=== PATIENT | male | born 1975 | race Caucasian/White ===

== ENCOUNTER 2017-12-27 | Emergency (ER) | payer BC ==
[2017-12-27 00:59] VITALS: O2SAT 94
--- NOTE | 2017-12-27 01:05 | ERPHSYRPT ---
- History of Present Illness Time Seen by Provider: 12/27/17 00:35 Source: patient Exam Limitations: no limitations Patient Subjective Stated Complaint: pt is alert and oriented. pt is ambulatory with a steady gait. pt comes in with c/o swelling in his right knee, lower leg, and foot. pt states he began having right knee pain a few days ago and tonight his entire lower leg swollen. pt pedal pulses present, equal, and strong. pt denies any shooting leg pains. no redness noted. Triage Nursing Assessment: see above Physician History: 42 y/o obese white male with h/o gout in past presents with first right 1st toe redness, tenderness, and swelling 2 to 3 days ago then same s/sx in right knee then back into right 1st toe. pt now has right 1st toe redness, tenderness and swelling as well as below knee redness, warmth and swelling. no injury. no bleeding or clotting d/o Method of Injury: other (no injury) Occurred: days ago (3) Severity of Pain-Max: mild Severity of Pain-Current: mild Lower Extremities Pain: leg: right, 1st toe: right Modifying Factors: Improves With: nothing Associated Symptoms: No unable to bear weight, No dizzy, No fainted, No seizure , No snapping sensation, No popping sensation Allergies/Adverse Reactions: No Known Drug Allergies Allergy (Verified 09/07/15 21:07) Home Medications: No Home Meds [No Home Meds] 1 [facility] UD 09/07/15 [History] Hx Tetanus, Diphtheria Vaccination/Date Given: No Hx Influenza Vaccination/Date Given: No Hx Pneumococcal Vaccination/Date Given: No Immunizations Up to Date: Yes - Review of Systems Constitutional: No Symptoms Eyes: No Symptoms Ears, Nose, & Throat: No Symptoms Respiratory: No Symptoms, No Cough, No Dyspnea Cardiac: No Symptoms, No Chest Pain, No Palpitations, No Syncope Abdominal/Gastrointestinal: No Symptoms, No Abdominal Pain, No Nausea, No Vomiting, No Diarrhea Genitourinary Symptoms: No Symptoms Musculoskeletal: Joint Redness (right first toe), Joint Pain (right first toe), Joint Swelling (right first toe) Skin: No Symptoms Neurological: No Symptoms Psychological: No Symptoms Endocrine: No Symptoms Hematologic/Lymphatic: No Symptoms Immunological/Allergic: No Symptoms All Other Systems: Reviewed and Negative - Past Medical History Pertinent Past Medical History: Yes Neurological History: No Pertinent History ENT History: No Pertinent History Cardiac History: No Pertinent History Respiratory History: No Pertinent History Endocrine Medical History: No Pertinent History Musculoskeletal History: No Pertinent History GI Medical History: No Pertinent History History: No Pertinent History Psycho-Social History: No Pertinent History Male Reproductive Disorders: No Pertinent History - Past Surgical History Past Surgical History: Yes Neuro Surgical History: No Pertinent History Cardiac: No Pertinent History Respiratory: No Pertinent History Gastrointestinal: Appendectomy, Cholecystectomy, Hemorrhoidectomy Musculoskeletal: Orthopedic Surgery Male Surgical History: Vasectomy Other Surgical History: ligaments in left knee replaced. - Social History Smoking Status: Current every day smoker How long have you smoked: 20 years Exposure to second hand smoke: Yes Drug Use: none Patient Lives Alone: No - Nursing Vital Signs Nursing Vital Signs: Initial Vital Signs Temperature 99.2 F 12/27/17 00:01 Pulse Rate 92 H 12/27/17 00:01 Respiratory Rate 18 12/27/17 00:01 Blood Pressure 160/91 12/27/17 00:01 O2 Sat by Pulse Oximetry 97 12/27/17 00:01 Pain Scale Pain Intensity 5 - Physical Exam General Appearance: no apparent distress, alert, anxiety Eyes, Ears, Nose, Throat Exam: normal ENT inspection, moist mucous membranes Neck Exam: normal inspection, non-tender, supple, full range of motion Cardiovascular/Respiratory Exam: chest non-tender, normal breath sounds, regular rate/rhythm Gastrointestinal/Abdominal Exam: non-tender, soft, No guarding, No tenderness Back Exam: normal inspection, normal range of motion, No CVA tenderness, No vertebral tenderness Hips Exam: bilateral: non-tender, normal inspection, normal range of motion, no evidence of injury Legs Exam: right leg: bone tenderness, soft tissue tenderness, swelling, left leg: non-tender, normal inspection, normal range of motion, no evidence of injury Knees Exam: bilateral knee: non-tender, normal inspection, normal range of motion, no evidence of injury Ankle Exam: bilateral ankle: non-tender, normal inspection, normal range of motion, no evidence of injury Foot Exam: right foot: bone tenderness (right first toe), soft tissue tenderness , swelling Neuro/Tendon Exam: normal sensation, normal motor functions, normal tendon functions Mental Status Exam: alert, oriented x 3, cooperative Skin Exam: normal color, warm, dry SpO2 Interpretation: normal SpO2: 94 Oxygen Delivery: Room Air - Course Nursing assessment & vital signs reviewed: Yes Ordered Tests: Active Orders 24 hr Category Date Time Status IV Insertion STAT Care 12/27/17 01:08 Active BMP Stat Lab 12/27/17 01:37 Completed CBC W DIFF Stat Lab 12/27/17 01:37 Completed D-DIMER QUANTITATION Stat Lab 12/27/17 01:37 Completed Uric Acid Stat Lab 12/27/17 01:37 Completed Medication Summary Discontinued Medications Generic Name Dose Route Start Last Admin Trade Name Manuela PRN Reason Stop Dose Admin Methylprednisolone Sodium Succinate 125 mg 12/27/17 02:24 Solu-Medrol 125 Mg IV 12/27/17 02:25 STAT ONE Oxycodone/Acetaminophen 1 tab 12/27/17 02:25 Oxycodone-Acetaminophen 10-325 PO 12/27/17 02:26 STAT STA Lab/Rad Data: Laboratory Result Diagrams 12/27/17 01:37 12/27/17 01:37 Laboratory Results 12/27/17 12/27/17 12/27/17 Range/Units 01:37 01:37 01:37 WBC (4.0-10.5) K/mm3 RBC (4.1-5.6) M/mm3 Hgb (12.5-18.0) gm/dl Hct (42-50) % MCV (78-100) fl MCH (26-32) pg MCHC (32-36) g/dl RDW (11.5-14.0) % Plt Count (150-450) K/mm3 MPV (6-9.5) fl Gran % (36.0-66.0) % Eos # (Auto) (0-0.5) Absolute Lymphs (auto) (1.0-4.6) Absolute Monos (auto) (0.0-1.3) Lymphocytes % (24.0-44.0) % Monocytes % (0.0-12.0) % Eosinophils % (0.00-5.0) % Basophils % (0.0-0.4) % Absolute Granulocytes (1.4-6.9) Basophils # (0-0.4) D-Dimer 317 (215-500) ng/mL Sodium 139 (137-145) mmol/L Potassium 3.9 (3.5-5.1) mmol/L Chloride 102 (98-107) mmol/L Carbon Dioxide 27 (22-30) mmol/L Anion Gap 14.9 (5-15) MEQ/L BUN 13 (9-20) mg/dL Creatinine 1.01 (0.66-1.25) mg/dL Estimated GFR > 60.0 ML/MIN Glucose 106 (74-106) mg/dL Uric Acid 7.5 H (3.5-7.2) mg/dL Calcium 9.9 (8.4-10.2) mg/dL 12/27/17 Range/Units 01:37 WBC 9.1 (4.0-10.5) K/mm3 RBC 4.94 (4.1-5.6) M/mm3 Hgb 15.0 (12.5-18.0) gm/dl Hct 45.3 (42-50) % MCV 91.7 (78-100) fl MCH 30.4 (26-32) pg MCHC 33.1 (32-36) g/dl RDW 12.8 (11.5-14.0) % Plt Count 182 (150-450) K/mm3 MPV 12.3 H (6-9.5) fl Gran % 51.1 (36.0-66.0) % Eos # (Auto) 0.21 (0-0.5) Absolute Lymphs (auto) 3.31 (1.0-4.6) Absolute Monos (auto) 0.93 (0.0-1.3) Lymphocytes % 36.2 (24.0-44.0) % Monocytes % 10.2 (0.0-12.0) % Eosinophils % 2.3 (0.00-5.0) % Basophils % 0.2 (0.0-0.4) % Absolute Granulocytes 4.67 (1.4-6.9) Basophils # 0.02 (0-0.4) D-Dimer (215-500) ng/mL Sodium (137-145) mmol/L Potassium (3.5-5.1) mmol/L Chloride (98-107) mmol/L Carbon Dioxide (22-30) mmol/L Anion Gap (5-15) MEQ/L BUN (9-20) mg/dL Creatinine (0.66-1.25) mg/dL Estimated GFR ML/MIN Glucose (74-106) mg/dL Uric Acid (3.5-7.2) mg/dL Calcium (8.4-10.2) mg/dL - Progress Progress: unchanged Progress Note: 12/27/17 02:41 pt refuses percocet Counseled pt/family regarding: lab results, diagnosis, need for follow-up - Departure Time of Disposition: 02:29 Departure Disposition: Home Clinical Impression: Gout attack Condition: Stable Critical Care Time: No Referrals: GABBY RENE [Primary Care Provider] - Additional Instructions: follow up with your primary for further management and chronic prevention. drink plenty of fluids Prescriptions: Indomethacin 25 mg [Indocin 25 MG] 50 mg PO TID #15 capsule
[2017-12-27 01:45] LABS: BASOPHIL % 0.2 % (0.0-0.4); Basophil (Absolute #) 0.02 (0-0.4); Eosinophil % 2.3 % (0.00-5.0); Eosinophil (Absolute #) 0.21 (0-0.5); Granulocyte Absolute (ANC) 4.67 (1.4-6.9); Granulocytes % 51.1 % (36.0-66.0); Hematocrit 45.3 % (42-50); Lymphocyte (Absolute #) 3.31 (1.0-4.6); Lymphocytes % 36.2 % (24.0-44.0); Mean Cell Volume 91.7 fl (78-100); Mean Corpuscular Hemoglobin 30.4 pg (26-32); Mean Corpuscular Hgb Concent. 33.1 g/dl (32-36); Mean Platelet Volume 12.3 fl (6-9.5); Monocyte (Absolute #) 0.93 (0.0-1.3); Monocytes % 10.2 % (0.0-12.0); Platelet Count 182 K/mm3 (150-450); Red Blood Count 4.94 M/mm3 (4.1-5.6); Red Cell Distribution Width 12.8 % (11.5-14.0); White Blood Count 9.1 K/mm3 (4.0-10.5)
[2017-12-27 02:06] LABS: ANION GAP 14.9 MEQ/L (5-15); BLOOD UREA NITROGEN 13 mg/dL (9-20); CHLORIDE 102 mmol/L (98-107); Calcium 9.9 mg/dL (8.4-10.2); Carbon Dioxide 27 mmol/L (22-30); Creatinine 1 1.01 mg/dL (0.66-1.25); Glucose 106 mg/dL (74-106); Potassium 3.9 mmol/L (3.5-5.1); SODIUM 139 mmol/L (137-145)
[2017-12-27] MEDS ORDERED: solu-MEDROL 125 MG IV ONE (02:24)
[2017-12-27] MEDS ORDERED: OXYCODONE-ACETAMINOPHEN 10-325 PO STA (02:25)
[2017-12-27] MEDS ORDERED: OXYCODONE-ACETAMINOPHEN 10-325 ONE (02:30)
[2017-12-27] MEDS ORDERED: solu-MEDROL 125 MG ONE (02:30)
[2017-12-27 02:51] VITALS: BP 128/83; PULSE 89
== END 2017-12-27 02:59 | disposition home or self-care (01) ==
LOC: ED
DX: M10.9 Gout, unspecified (principal); M25.571 Pain in right ankle and joints of right foot; M25.474 Effusion, right foot
CPT/HCPCS: 36000; 36415; 80048; 84550; 85025; 85379; 96374; 99284; J2930; A9270-GY

== ENCOUNTER 2020-07-16 06:59 | Emergency (ER) | payer BC ==
[2020-07-16] MEDS ORDERED: solu-MEDROL 125 MG ONE (07:23)
[2020-07-16] MEDS: solu-MEDROL 125 MG IM ONE (07:33)
--- NOTE | 2020-07-16 07:34 | ERPHSYRPT ---
- History of Present Illness Time Seen by Provider: 07/16/20 07:20 Source: patient Exam Limitations: no limitations Patient Subjective Stated Complaint: R knee pain Triage Nursing Assessment: pt to ED c/o R knee pain since about yesterday. pt states there may have been trauma to knee few days ago but unsure what that might be. rates 0/10 at rest but up to 8/10 while ambulating. noted slight limp with ambulation. noted swelling to R knee, not warm to touch. pt reports hx gout. Physician History: This is a 45-year-old overweight white male has a history of gout and believes he has gout attack in his right knee. He has not injured his right knee per his recollection. He is on allopurinol but admits he does not take the medication as often as he should. His pain started yesterday and worsened throughout the day and this morning. He is able to ambulate on it but it hurts to do so. He has taken indomethacin in the past but this is irritating to his stomach. Patient is convinced this is his gout attack and does not want any x-rays performed. Method of Injury: unknown Occurred: yesterday Quality: constant, aching Severity of Pain-Max: moderate Severity of Pain-Current: moderate Modifying Factors: Improves With: movement Associated Symptoms: none Allergies/Adverse Reactions: No Known Drug Allergies Allergy (Verified 07/16/20 07:18) Home Medications: Allopurinol [Zyloprim] 100 mg PO DAILY 07/16/20 [History] Hx Tetanus, Diphtheria Vaccination/Date Given: Yes Hx Influenza Vaccination/Date Given: Yes Hx Pneumococcal Vaccination/Date Given: No Immunizations Up to Date: Yes Travel Risk - International Travel Have you traveled outside of the country in past 3 weeks: No - Coronavirus Screening Are you exhibiting any of the following symptoms?: No Close contact with a COVID-19 positive Pt in past 14-21 Days: No - Vaccine Status Have you recieved a Covid-19 vaccination: No - Review of Systems Constitutional: No Symptoms Eyes: No Symptoms Ears, Nose, & Throat: No Symptoms Respiratory: No Symptoms Cardiac: No Symptoms Abdominal/Gastrointestinal: No Symptoms Genitourinary Symptoms: No Symptoms Musculoskeletal: Joint Pain Skin: No Symptoms Neurological: No Symptoms Psychological: No Symptoms Endocrine: No Symptoms Hematologic/Lymphatic: No Symptoms Immunological/Allergic: No Symptoms All Other Systems: Reviewed and Negative - Past Medical History Pertinent Past Medical History: Yes Neurological History: No Pertinent History ENT History: No Pertinent History Cardiac History: No Pertinent History Respiratory History: No Pertinent History Endocrine Medical History: No Pertinent History Musculoskeletal History: No Pertinent History GI Medical History: No Pertinent History History: No Pertinent History Psycho-Social History: No Pertinent History Male Reproductive Disorders: No Pertinent History Other Medical History: gout - Past Surgical History Past Surgical History: Yes Neuro Surgical History: No Pertinent History Cardiac: No Pertinent History Respiratory: No Pertinent History Gastrointestinal: Appendectomy, Cholecystectomy, Hemorrhoidectomy Musculoskeletal: Orthopedic Surgery Male Surgical History: Vasectomy Other Surgical History: ligaments in left knee replaced. - Social History Smoking Status: Current every day smoker How long have you smoked: 20 years Exposure to second hand smoke: Yes Drug Use: none Patient Lives Alone: No - Nursing Vital Signs Nursing Vital Signs: Initial Vital Signs Temperature 97.6 F 07/16/20 07:11 Pulse Rate 93 H 07/16/20 07:11 Respiratory Rate 18 07/16/20 07:11 Blood Pressure 167/105 07/16/20 07:11 O2 Sat by Pulse Oximetry 99 07/16/20 07:11 Pain Scale Pain Intensity 0 - Physical Exam General Appearance: no apparent distress, alert, anxiety, obese Eyes, Ears, Nose, Throat Exam: normal ENT inspection, moist mucous membranes Neck Exam: normal inspection, non-tender, supple, full range of motion Cardiovascular/Respiratory Exam: chest non-tender, no respiratory distress Gastrointestinal/Abdominal Exam: non-tender Back Exam: normal inspection, normal range of motion, No CVA tenderness, No vertebral tenderness Hips Exam: bilateral: non-tender, normal inspection, normal range of motion, no evidence of injury Legs Exam: bilateral leg: non-tender, normal inspection, normal range of motion, no evidence of injury Knees Exam: right knee: pain, soft tissue tenderness, swelling (Anterior knee), left knee: non-tender, normal inspection, normal range of motion, no evidence of injury Ankle Exam: bilateral ankle: non-tender, normal inspection, normal range of motion, no evidence of injury Foot Exam: bilateral foot: non-tender, normal inspection, normal range of motion, no evidence of injury Neuro/Tendon Exam: normal sensation, normal motor functions, normal tendon functions, responds to pain Mental Status Exam: alert, oriented x 3, cooperative Skin Exam: normal color, warm, dry SpO2 Interpretation: normal SpO2: 99 O2 Delivery: Room Air - Course Nursing assessment & vital signs reviewed: Yes Ordered Tests: Medication Summary Generic Name Dose Route Start Last Admin Trade Name Freq PRN Reason Stop Dose Admin Methylprednisolone Sodium Succinate 125 mg 07/16/20 07:29 Solu-Medrol 125 Mg IM 07/16/20 07:30 STAT ONE Discontinued Medications Generic Name Dose Route Start Last Admin Trade Name Freq PRN Reason Stop Dose Admin Methylprednisolone Sodium Succinate Confirm 07/16/20 07:23 Solu-Medrol 125 Mg Administered 07/16/20 07:24 Dose 125 mg .ROUTE .STK-MED ONE - Progress Progress: improved Counseled pt/family regarding: diagnosis, need for follow-up - Departure Departure Disposition: Home Clinical Impression: Right anterior knee pain Condition: Stable Critical Care Time: No Additional Instructions: Take your medication as prescribed. Ice pack to area 3 times a day for the next 48 hours. Continue your allopurinol as prescribed. Follow-up with your primary care physician for further management. Prescriptions: Prednisone 10 mg [Deltasone 10 mg] 10 mg PO TID #12 tablet
[2020-07-16 07:43] VITALS: BP 145/85; PULSE 79; O2SAT 100
== END 2020-07-16 07:47 | disposition home or self-care (01) ==
LOC: ED 06:59
DX: M25.561 Pain in right knee (principal); M25.461 Effusion, right knee; M10.9 Gout, unspecified
CPT/HCPCS: 96372; 99283; J2930

== ENCOUNTER 2021-02-17 18:32 | Emergency (ER) | payer BC ==
[2021-02-17] MEDS ORDERED: Zithromax 250 MG TABLET PO ONE (19:31)
[2021-02-17 19:37] VITALS: BP 138/92; PULSE 86; O2SAT 93
[2021-02-17] MEDS ORDERED: Zithromax 250 MG TABLET ONE (19:43)
--- NOTE | 2021-02-17 19:47 | ERPHSYRPT ---
- History of Present Illness Time Seen by Provider: 02/17/21 18:32 Source: patient Exam Limitations: no limitations Patient Subjective Stated Complaint: pt states he has had a sore throat since friday, improved some now. has some nasal congestion and drainage. has cough since . Triage Nursing Assessment: pt alert and oriented, answers questions approp. pt ambualtory with steady gait noted. respirations nonlabored with lungs cta. skin pink warm and dry. Physician History: 45 years old male presented in the ER with chief complaint of nasal congestion, sinus drainage with cough productive of clear to yellow sputum for almost 1 week with progressive worsening. Because of repeated coughing having some earaches and pressure sensation. No chest pain palpitations or shortness of breath. No known sick contact. Patient was seen outpatient and currently on prednisone with minimal improvement. Timing/Duration: week(s) (1), constant, gradual onset, worse Cough Quality/Degree: moderate, dry cough Possible Cause: unknown cause Modifying Factors: Worsens With: coughing Associated Symptoms: cough, earache, nasal congestion, nasal drainage, sinus infection, sore throat, No fever, No shortness of breath Allergies/Adverse Reactions: No Known Drug Allergies Allergy (Verified 02/17/21 19:38) Home Medications: Prednisone 10 mg [Deltasone 10 mg] 20 mg PO BID 02/17/21 [History] Hx Tetanus, Diphtheria Vaccination/Date Given: Yes Hx Influenza Vaccination/Date Given: No Hx Pneumococcal Vaccination/Date Given: No Immunizations Up to Date: Yes Travel Risk - International Travel Have you traveled outside of the country in past 3 weeks: No - Coronavirus Screening Are you exhibiting any of the following symptoms?: Yes Symptoms: Cough: New Onset Close contact with a COVID-19 positive Pt in past 14-21 Days: No - Vaccine Status Have you recieved a Covid-19 vaccination: No - Review of Systems Constitutional: No Symptoms Eyes: No Symptoms Ears, Nose, & Throat: Nose Congestion, Nose Discharge, Sinus Drainage, Throat Pain, Throat Swelling Respiratory: Cough Cardiac: No Symptoms Abdominal/Gastrointestinal: No Symptoms Musculoskeletal: No Symptoms Skin: No Symptoms Neurological: No Symptoms Psychological: No Symptoms Hematologic/Lymphatic: No Symptoms Immunological/Allergic: No Symptoms - Past Medical History Pertinent Past Medical History: Yes Neurological History: No Pertinent History ENT History: No Pertinent History Cardiac History: No Pertinent History Respiratory History: No Pertinent History Endocrine Medical History: No Pertinent History Musculoskeletal History: No Pertinent History GI Medical History: No Pertinent History History: No Pertinent History Psycho-Social History: No Pertinent History Male Reproductive Disorders: No Pertinent History Other Medical History: gout - Past Surgical History Past Surgical History: Yes Neuro Surgical History: No Pertinent History Cardiac: No Pertinent History Respiratory: No Pertinent History Gastrointestinal: Appendectomy, Cholecystectomy, Hemorrhoidectomy Musculoskeletal: Orthopedic Surgery Male Surgical History: Vasectomy Other Surgical History: ligaments in left knee replaced. - Social History Smoking Status: Current every day smoker How long have you smoked: 20 years Exposure to second hand smoke: Yes Drug Use: none Patient Lives Alone: No - Nursing Vital Signs Nursing Vital Signs: Initial Vital Signs Temperature 98.6 F 02/17/21 19:24 Pulse Rate 86 02/17/21 19:24 Respiratory Rate 18 02/17/21 19:24 Blood Pressure 138/92 02/17/21 19:24 O2 Sat by Pulse Oximetry 94 L 02/17/21 19:24 Pain Scale Pain Intensity 0 - Physical Exam General Appearance: no apparent distress, alert Eye Exam: PERRL/EOMI, eyes nml inspection Ears, Nose, Throat Exam: moist mucous membranes, pharyngeal erythema Neck Exam: normal inspection, non-tender, supple, full range of motion Respiratory Exam: normal breath sounds, lungs clear Cardiovascular Exam: regular rate/rhythm, normal heart sounds Back Exam: normal inspection Extremity Exam: normal inspection, normal range of motion, pelvis stable Neurologic Exam: alert, oriented x 3, cooperative Skin Exam: normal color SpO2 Interpretation: normal SpO2: 93 O2 Delivery: Room Air Ordered Tests: Medication Summary Discontinued Medications Generic Name Dose Route Start Last Admin Trade Name Jobq PRN Reason Stop Dose Admin Azithromycin 500 mg 02/17/21 19:31 Azithromycin 250 Mg Tablet PO 02/17/21 19:32 STAT ONE - Progress Progress: unchanged Air Movement: good Progress Note: 02/17/21 19:44 Patient has URI with congestion and some involvement of sinuses. He is already taking steroids and not helping much. I would start him on Flonase and Z-Goyo. Outpatient follow-up recommended. Counseled pt/family regarding: diagnosis, need for follow-up - Departure Departure Disposition: Home Clinical Impression: URI with cough and congestion Condition: Stable Critical Care Time: No Referrals: DOCTOR,NO FAMILY [Primary Care Provider] - Follow up/PCP as directed GALINA PANIAGUA MD [ACTIVE STAFF] - Follow Up with PCP/3 days Instructions: Cough, Adult (DC) Additional Instructions: Take Tylenol/ibuprofen as needed. Follow-up with primary care for reevaluation. Return to ER for worsening cough or if develop difficulty breathing etc. Prescriptions: Fluticasone Propionate [Flonase NASAL] 16 gm NS DAILY #1 Azithromycin 250 mg [Zithromax 250 MG TABLET] 250 mg PO DAILY 4 Days #4 tablet
== END 2021-02-17 20:02 | disposition home or self-care (01) ==
LOC: ED 18:32
DX: J06.9 Acute upper respiratory infection, unspecified (principal); R05.9 Cough, unspecified; R09.81 Nasal congestion; J02.9 Acute pharyngitis, unspecified; H92.09 Otalgia, unspecified ear; Z72.0 Tobacco use; Z79.52 Long term (current) use of systemic steroids
CPT/HCPCS: 99283; A9270-GY

== ENCOUNTER 2023-12-24 21:35 | Emergency (ER) | payer BC, OTHER ==
[2023-12-24 21:49] VITALS: TEMP 98.3
[2023-12-24] MEDS ORDERED: DELTASONE 20 MG ONE (22:21)
--- NOTE | 2023-12-24 22:21 | ERPHSYRPT ---
- History of Present Illness Time Seen by Provider: 12/24/23 21:50 Source: patient Exam Limitations: no limitations Patient Subjective Stated Complaint: C/O congestion and cough for approx one month that is getting worse Triage Nursing Assessment: Patient ambulated back to ER. He is alert and oriented. Skin tone normal. SOB noted with exertion. Physician History: 48-year-old male, smoker presents to our ED for evaluation of cough congestion, body aches for approximately 1 month. Patient denies chest pain shortness of breath. No nausea vomiting or diaphoresis. No diarrhea no rash fever. No neck pain no photophobia no meningeal signs. Patient's symptoms are constant. Symptoms are moderate in intensity. No specific worsening or improving factors. Patient otherwise feels well. He voices no other complaints or concerns at this time. Portions of this note were created with voice recognition technology. There may be grammatical, spelling, punctuation or sound alike errors Timing/Duration: week(s) (1 month) Severity: moderate Modifying Factors: Improves With: nothing Associated Symptoms: denies symptoms Allergies/Adverse Reactions: No Known Drug Allergies Allergy (Verified 12/24/23 21:39) Hx Tetanus, Diphtheria Vaccination/Date Given: Yes Hx Influenza Vaccination/Date Given: No Hx Pneumococcal Vaccination/Date Given: No Immunizations Up to Date: Yes Travel Risk - International Travel Have you traveled outside of the country in past 3 weeks: No - Emerging Infectious Disease Are you exhibiting symptoms associated with any current EIDs: Yes Symptoms: Cough: New Onset, Shortness of Breath - Review of Systems Constitutional: No Symptoms, No Fever, No Chills Eyes: No Symptoms Ears, Nose, & Throat: No Symptoms Respiratory: No Symptoms, No Cough, No Dyspnea Cardiac: No Symptoms, No Chest Pain, No Edema, No Syncope Abdominal/Gastrointestinal: No Symptoms, No Abdominal Pain, No Nausea, No Vomiting, No Diarrhea Genitourinary Symptoms: No Symptoms, No Dysuria Musculoskeletal: No Symptoms, No Back Pain, No Neck Pain Skin: No Symptoms, No Rash Neurological: No Symptoms, No Dizziness, No Focal Weakness, No Sensory Changes Psychological: No Symptoms Endocrine: No Symptoms Hematologic/Lymphatic: No Symptoms Immunological/Allergic: No Symptoms All Other Systems: Reviewed and Negative - Past Medical History Pertinent Past Medical History: Yes Neurological History: No Pertinent History ENT History: No Pertinent History Cardiac History: No Pertinent History Respiratory History: No Pertinent History Endocrine Medical History: No Pertinent History Musculoskeletal History: No Pertinent History GI Medical History: No Pertinent History History: No Pertinent History Psycho-Social History: No Pertinent History Male Reproductive Disorders: No Pertinent History Other Medical History: gout - Past Surgical History Past Surgical History: Yes Neuro Surgical History: No Pertinent History Cardiac: No Pertinent History Respiratory: No Pertinent History Gastrointestinal: Cholecystectomy, Hemorrhoidectomy Musculoskeletal: Orthopedic Surgery Male Surgical History: Vasectomy Other Surgical History: ligaments in left knee replaced. - Social History Smoking Status: Current every day smoker How long have you smoked: long time Exposure to second hand smoke: No Drug Use: none Patient Lives Alone: No - Social Determinants of Health Will the patient participate in the screening: Declined to provide - Nursing Vital Signs Nursing Vital Signs: Initial Vital Signs Temperature 98.3 F 12/24/23 21:40 Pulse Rate 97 H 12/24/23 21:40 Respiratory Rate 26 H 12/24/23 21:40 Blood Pressure 173/106 12/24/23 21:40 O2 Sat by Pulse Oximetry 92 L 12/24/23 21:40 Pain Scale Pain Intensity 0 - Physical Exam General Appearance: no apparent distress, alert Eye Exam: PERRL/EOMI, eyes nml inspection Ears, Nose, Throat Exam: normal ENT inspection, TMs normal, pharynx normal, moist mucous membranes, other (Nasal congestion) Neck Exam: normal inspection, non-tender, supple, full range of motion Respiratory Exam: airway intact, diminished breath sounds, rhonchi, wheezing, No respiratory distress Cardiovascular Exam: regular rate/rhythm, normal heart sounds, normal peripheral pulses Gastrointestinal/Abdomen Exam: soft, normal bowel sounds, No tenderness, No mass Back Exam: normal inspection, normal range of motion, No CVA tenderness, No vertebral tenderness Extremity Exam: normal inspection, normal range of motion, pelvis stable Neurologic Exam: alert, oriented x 3, cooperative, normal mood/affect, nml cerebellar function, nml station & gait, sensation nml, No motor deficits Skin Exam: normal color, warm, dry, No rash Lymphatic Exam: No adenopathy SpO2 Interpretation: normal SpO2: 92 O2 Delivery: Room Air - Course Nursing assessment & vital signs reviewed: Yes - Radiology Exams Chest X-ray Interpretation: Teleradiologist Report (Cardiomegaly, chronic findings) Ordered Tests: Active Orders 24 hr Category Date Time Status AMA [Release AMA] OM.NOW Care 12/24/23 23:21 Active CHEST 1 VIEW (PORTABLE) Stat Exams 12/24/23 21:47 Completed Respiratory Therapy Assessment DAILY RT 12/24/23 22:36 Active Medication Summary Discontinued Medications Generic Name Dose Route Start Last Admin Trade Name Manuela PRN Reason Stop Dose Admin Albuterol Sulfate 2.5 mg 12/24/23 22:20 12/24/23 22:35 Albuterol Sulfate 2.5 Mg/3 Ml Neb IH 12/24/23 22:21 2.5 mg STAT ONE Administration Albuterol Sulfate Confirm 12/24/23 22:31 Albuterol Sulfate 2.5 Mg/3 Ml Neb Administered 12/24/23 22:32 Dose 2.5 mg IH .STK-MED ONE Prednisone 60 mg 12/24/23 22:20 12/24/23 22:22 Prednisone 20 Mg Tablet PO 12/24/23 22:21 60 mg STAT ONE Administration Prednisone Confirm 12/24/23 22:21 Prednisone 20 Mg Tablet Administered 12/24/23 22:22 Dose 60 mg .ROUTE .STK-MED ONE Lab/Rad Data: Laboratory Results 12/24/23 Range/Units 21:55 Influenza Type A Ag NEGATIVE (NEGATIVE) Influenza Type B Ag NEGATIVE (NEGATIVE) RSV (PCR) NEGATIVE (NEGATIVE) SARS-CoV-2 (PCR) NEGATIVE (NEGATIVE) - Progress Progress: improved Progress Note: 48-year-old male presents to our ED with shortness of breath and congestion. Physical exam reveals wheezing with rhonchi. Diminished breath sounds. Chest x-ray shows new cardiomegaly. We ambulated patient throughout our ED. O2 sa turation dropped to 91%. Patient is a smoker he is likely experiencing a COPD exacerbation. We advise hospitalization patient declined. Patient decided to leave AGAINST MEDICAL ADVICE. Patient received Solu-Medrol and a albuterol nebulizer treatment. Symptoms significantly improved. Wheezing improved. However patient remained hypoxic at rest. Patient was advised of the new finding of cardiomegaly on chest x-ray. Patient agrees to follow-up with his primary care doctor for further workup of his cardiomegaly. However in spite of recommendations for hospitalization patient decided to leave AGAINST MEDICAL ADVICE as he has other obligations at home to attend to and cannot be admitted at this time. Patient is of sound mind. Patient is appropriate to make informed and independent medical decisions. Patient understands that leaving AGAINST MEDICAL ADVICE can result in delayed diagnosis, increased risk of morbidity, mortality, short and long-term disability including . In spite of these risks, patient has decided to leave AGAINST MEDICAL ADVICE. Patient understands that he may return to our ED at any point if he reconsiders. Patient agrees to follow-up with his primary care doctor within 48 hours for reevaluation. Patient voices no other complaints or concerns at this time. We will release patient AGAINST MEDICAL ADVICE per their request. Complexity problem addressed is moderate acute complicated no critical care time. Complexity of data reviewed and analyzed is moderate. Test ordered chest reviewed results analyzed and correlated clinically with history and physical exam. Risk of complication/risk morbidity/mortality patient management is moderate. Prescription forwarded to patient's pharmacy for Z-Goyo, Augmentin, prednisone and albuterol inhaler. Vital stable. Time spent to discharge patient is approximately 15 minutes. Plan of care established for shared decision making. No social determinants of health present to impede follow-up. Smoking cessation discussed Portions of this note were created with voice recognition technology. There may be grammatical, spelling, punctuation or sound alike errors 12/24/23 23:24 12/24/23 23:29 Counseled pt/family regarding: lab results, diagnosis, need for follow-up, rad results, smoking cessation - Departure Departure Disposition: AMA Clinical Impression: Wheezing, Shortness of breath, Hypoxia, COPD exacerbation Condition: Stable Critical Care Time: No Referrals: BRITNEY ABERNATHY NP [Primary Care Provider] - Follow up/PCP as directed Instructions: Chronic Obstructive Pulmonary Disease, Shortness of Breath, Adult ED Additional Instructions: Discharge/Care Plan ERIC MATA was seen on 12/24/23 in the Emergency Room. The patient was counseled regarding Diagnosis,Lab results, Imaging studies, need for follow up and when to return to the Emergency Room. Prescriptions given: Discharge Note I have spoken with the patient and/or caregivers. I have explained the patient's condition, diagnosis and treatment plan based on the information available to me at this time. I have answered the patient's and/or caregiver's questions and addressed any concerns. The patient and/or caregivers have as good understanding of the patient's diagnosis, condition and treatment plan as can be expected at this point. The vital signs have been stable. The patient's condition is stable and appropriate for discharge from the emergency department. The patient will pursue further outpatient evaluation with the primary care physician or other designated or consulting physician as outlined in the discharge instructions. The patient and/or caregivers are agreeable to this plan of care and follow-up instructions have been explained in detail. The patient and/or caregivers have received these instruction. The patient/and or caregivers are aware that any significant change in condition or worsening of symptoms should prompt an immediate return to this or the closest emergency department or call 911. Prescriptions: Amox Tr/Potass Clav. 875 mg [Augmentin 875-125 Tablet] 875 mg PO BID 7 Days #14 tablet Prednisone 10 mg [Deltasone 10 mg] 40 mg PO DAILY 3 Days #12 tablet Albuterol 8 gm Mdi Hfa [Ventolin Hfa MDI] 8 gm IH Q4H #1 Azithromycin 250 mg [Zithromax 250 MG TABLET] 250 mg PO ZPACK #6 tablet
[2023-12-24] MEDS: DELTASONE 20 MG PO ONE (22:22)
[2023-12-24] MEDS ORDERED: PROVENTIL 2.5 MG/3 ML NEB IH ONE (22:31)
[2023-12-24] MEDS: PROVENTIL 2.5 MG/3 ML NEB IH ONE (22:35)
[2023-12-24 22:36] VITALS: BP 174/97
[2023-12-24 22:38] VITALS: PULSE 95; RESP 16
[2023-12-24 22:42] LABS: INFLUENZA A NEGATIVE (NEGATIVE); INFLUENZA B NEGATIVE (NEGATIVE); RESPIRATORY SYNCTIAL VIRUS NEGATIVE (NEGATIVE); SARS-CoV-2 Xpert Express NEGATIVE (NEGATIVE)
--- NOTE | 2023-12-24 23:15 | XRAY ---
CLINICAL HISTORY: cough COMPARISON: Radiograph dated 08/05/2022. TECHNIQUE: X-ray of the chest was obtained in 1 view: AP view. FINDINGS: Pulmonary Parenchyma: Lungs are clear bilaterally. No evidence of consolidation, collapse, or focal opacities. No pulmonary nodules were identified. No evidence of pleural effusion or pleural thickening. Heart and Mediastinum: Heart size appears enlarged on this AP projection. No mediastinal widening or masses. No hilar or mediastinal lymphadenopathy. Bony Thorax: The bony thorax appears intact without fractures or deformities. Soft Tissues: Soft tissues overlying the chest wall are unremarkable. IMPRESSION: 1. Enlarged heart(new). 2. No evidence of consolidation, collapse, or pleural effusion(stable). 3. No other change since the last radiograph. Electronically Signed by: Venessa Bedolla MD. (12/24/2023 23:10:43 EDT)
[2023-12-24 23:22] VITALS: O2SAT 92
== END 2023-12-24 23:23 | disposition left against medical advice (07) ==
LOC: ED 21:35
DX: J44.1 Chronic obstructive pulmonary disease with (acute) exacerbation (principal); R06.2 Wheezing; R06.02 Shortness of breath; R09.02 Hypoxemia; R05.2 Subacute cough; M79.10 Myalgia, unspecified site; Z79.52 Long term (current) use of systemic steroids; Z79.899 Other long term (current) drug therapy; Z72.0 Tobacco use
CPT/HCPCS: 0241U; 71045; 94640; 99283; J7609; A9270-GY

== ENCOUNTER 2024-12-03 20:29 | Emergency (ER) | payer OTHER ==
[2024-12-03 20:42] VITALS: BP 146/104; TEMP 97.2; O2SAT 95
[2024-12-03] MEDS ORDERED: DELTASONE 20 MG ONE (20:46)
[2024-12-03] MEDS ORDERED: Indocin 25 MG ONE (20:46)
[2024-12-03] MEDS: DELTASONE 20 MG PO ONE (20:48)
[2024-12-03] MEDS: Indocin 25 MG PO ONE (20:48)
--- NOTE | 2024-12-03 20:48 | ERPHSYRPT ---
- History of Present Illness Time Seen by Provider: 12/03/24 20:33 Source: patient Exam Limitations: no limitations Patient Subjective Stated Complaint: . Triage Nursing Assessment: . Physician History: 49-year-old male presents emergency room with gout flare patient reports he has been drinking a lot of pop and is concerned about being dehydrated as to why he is having a flare he reports he is unable to take allopurinol but has been on colchicine in the past denies any fevers or chills denies any falls denies any fevers denies any chest pain or shortness of breath denies any calf swelling denies abdominal pain denies any nausea vomiting or diarrhea now in ED for further eval Occurred: just prior to arrival Quality: constant Lower Extremities Pain: foot: left, 1st toe: left Modifying Factors: Improves With: nothing Associated Symptoms: none Allergies/Adverse Reactions: No Known Drug Allergies Allergy (Verified 12/03/24 20:33) Home Medications: Cyclobenzaprine HCl 10 mg [Cyclobenzaprine 10 MG] 10 mg PO TID 12/03/24 [ History] Hx Tetanus, Diphtheria Vaccination/Date Given: No Hx Influenza Vaccination/Date Given: No Hx Pneumococcal Vaccination/Date Given: No Travel Risk - International Travel Have you traveled outside of the country in past 3 weeks: No - Emerging Infectious Disease Are you exhibiting symptoms associated with any current EIDs: No Symptoms: Cough: New Onset, Shortness of Breath - Review of Systems Constitutional: No Fever, No Chills Eyes: No Symptoms Ears, Nose, & Throat: No Symptoms Respiratory: No Cough, No Dyspnea Cardiac: No Chest Pain, No Edema, No Syncope Abdominal/Gastrointestinal: No Abdominal Pain, No Nausea, No Vomiting, No Diarrhea Genitourinary Symptoms: No Dysuria Musculoskeletal: No Back Pain, No Neck Pain Skin: No Rash Neurological: No Dizziness, No Focal Weakness, No Sensory Changes Psychological: No Symptoms Endocrine: No Symptoms All Other Systems: Reviewed and Negative - Past Medical History Pertinent Past Medical History: Yes Neurological History: No Pertinent History ENT History: No Pertinent History Cardiac History: No Pertinent History Respiratory History: No Pertinent History Endocrine Medical History: No Pertinent History Musculoskeletal History: Other GI Medical History: No Pertinent History History: No Pertinent History Psycho-Social History: No Pertinent History Male Reproductive Disorders: No Pertinent History Other Medical History: PSH: GALLBLADDER, L KNEE LIGAMENTS, GOAT, Sciatica, L4/L5 herniated disk - Past Surgical History Past Surgical History: Yes Neuro Surgical History: No Pertinent History Cardiac: No Pertinent History Respiratory: No Pertinent History Gastrointestinal: Cholecystectomy, Hemorrhoidectomy, Other Genitourinary: No Pertinent History Musculoskeletal: Orthopedic Surgery Male Surgical History: Vasectomy Other Surgical History: ligaments in left knee replaced. hemorrhoid sx - Social History Smoking Status: Current every day smoker Exposure to second hand smoke: No Drug Use: none - Social Determinants of Health Will the patient participate in the screening: Yes Do you worry about a steady place to live?: No Do you have any problems with any of the following?: No known problems In the past 12 months,have you had to go without utilities?: No Transportation Issues: No Has anyone in your support network made you feel unsafe?: No Have you or anyone in your house had to go w/o enough food: No - Nursing Vital Signs Nursing Vital Signs: Initial Vital Signs Temperature 97.2 F 12/03/24 20:34 Pulse Rate 89 12/03/24 20:34 Respiratory Rate 20 12/03/24 20:34 Blood Pressure 146/104 12/03/24 20:34 O2 Sat by Pulse Oximetry 95 12/03/24 20:34 Pain Scale Pain Intensity [Right Foot] 10 Pain Intensity 10 - Physical Exam General Appearance: alert Eyes, Ears, Nose, Throat Exam: moist mucous membranes Neck Exam: non-tender, supple Cardiovascular/Respiratory Exam: chest non-tender, normal breath sounds, regular rate/rhythm, no respiratory distress Gastrointestinal/Abdominal Exam: non-tender, guarding Back Exam: normal inspection, No vertebral tenderness Foot Exam: left foot: pain, swelling (concern for gout flare) Neuro/Tendon Exam: normal sensation, normal motor functions Mental Status Exam: alert, oriented x 3, cooperative Skin Exam: normal color, warm, dry SpO2: 95 - Progress Progress Note: 12/03/24 20:44 Patient was given indomethacin steroid will prescribe colchicine as well as NSAIDs for home - Departure Departure Disposition: Home Clinical Impression: Gout flare Qualifiers: Gout site: ankle Gout etiology: unspecified cause Laterality: left Qualified Code(s): M10.9 - Gout, unspecified Condition: Stable Critical Care Time: No Referrals: KACY ISRAEL MD [Primary Care Provider, INTERNAL MEDICINE] - Follow up/PCP as directed CHARLIE MCDERMOTT DO [ACTIVE STAFF, ORTHOPEDICS] - Follow up/PCP as directed PADILLA MARCELO DPM [ACTIVE STAFF, PODIATRY] - Follow up/PCP as directed Instructions: Gout, Low-purine diet, Gout - ED discharge instructions Prescriptions: Colchicine 0.6 mg PO TID #3 tablet Indomethacin 25 mg [Indocin 25 MG] 25 mg PO BID #14 cap Methylprednisolone Packet [Medrol Dosepack] 4 mg PO UD #1 packet
[2024-12-03 20:51] VITALS: PULSE 90; RESP 18
== END 2024-12-03 20:55 | disposition home or self-care (01) ==
LOC: ED 20:29
DX: M10.9 Gout, unspecified (principal); Z79.899 Other long term (current) drug therapy; Z72.0 Tobacco use